=== PATIENT | female | born 1940 | race Caucasian/White ===

== ENCOUNTER 2025-09-22 11:37 | Inpatient (IN) | payer MEDICARE ==
[~2025-09-22] VITALS: Ht 162.6 cm; Wt 45.5 kg
--- NOTE | 2025-09-22 11:52 | ELECTROCARDIOGRAPH REPORT ---
[facility] Test Date: 2025-09-22 Test Time: 11:51:11 Pat Name: JOSE ANGEL CONWAY Department: [facility]ER Patient ID: [id number] Room: Gender: F [employer] Past[employer]er: : 1940 Requested By: WM FAJARDO Order Number: [id number] Reading MD: Measurements Intervals [place] Rate: 72 P: 90 VA: 138 QRS: 90 QRSD: 83 T: 80 QT: 418 QTc: 458 Interpretive Statements Sinus rhythm Probable anterior infarct, old Borderline repolarization abnormality Please click the below link to view image of tracing.
--- NOTE | 2025-09-22 12:25 | RADIOLOGY REPORT ---
AP portable chest CLINICAL INDICATION: CP FINDINGS: Heart size is slightly prominent in the aorta is tortuous. No infiltrates or effusions. There are some degenerative changes in the spine IMPRESSION: 1. No acute cardiopulmonary pathology
[2025-09-22 14:23] LABS: MEAN PLATELET VOLUME 9.0 FL (7.4-10.4); RED CELL DISTRIBUTION WIDTH 13.0 % (11.5-14.5)
--- NOTE | 2025-09-22 14:29 | Physician Documentation ---
History of Present Illness ~ Chief Complaint: Edema Stated Complaint: SWELLING Time Seen by MD: 14:04 Mode of Arrival: POV HPI 85-year-old female presents to the ED with one week of increased lower extremity swelling and redness. In addition the patient's smells strongly of urine. The family suspects a possible UTI. Patient has a known diagnosis of dementia but denies any history of congestive heart failure. Denies any chest pain shortness a breath weakness nausea vomiting or diarrhea Day of Onset: Sep 22, 2025 Medication Reconciliation Allergies: Coded Allergies: No Known Allergies (Unverified , 09/22/25) Review of Systems All Other Systems at this time: Reviewed and Negative ROS As stated above in the HPI, otherwise all systems are reviewed and negative. Physical Exam Vital Signs: Temperature: 97.5, Source: Temporal, Heart Rate: 69, Respiratory Rate: 16, BP: 132/48, Pulse Oximetry: 99, Weight: 45.450 Oxygen Flow Rate: 0 General Appearance General: Alert, no apparent distress. Respiratory: Lungs clear, no respiratory distress. Chest: No accessory muscle use. Cardiovascular: Regular rate and rhythm, no murmurs. Gastrointestinal: Soft, nontender, nondistended. Bowels sounds present. Extremities: Normal range of motion, no deformity. Bilateral feet her notable for 2+ pitting edema with gross erythema skin is not hot to touch Neurologic: Oriented2 Psychiatric: Normal mood and affect. Skin: Normal color, warm and dry. No edema, no ecchymosis. Progress Results/Orders Results/Orders Orders - LEOBARDO CLARK NP Straight Cath For Urine Sample (09/22/25 14:53) Page Hospitalist (09/22/25 ) Cult Urine + [address] (09/22/25 15:48) Completed Orders - LEOBARDO CLARK NP Ua W/Microscopic, Cult If Ind (09/22/25 14:50) Medications Received in ER Medications (Trade) Dose Ordered Sig/Miki Route PRN Reason Start Time Stop Time Status Last Admin Dose Admin Ceftriaxone Sodium 50 ml @ 100 mls/hr ONCE ONCE IV 09/22/25 15:55 09/22/25 16:32 DC 09/22/25 17:12 100 MLS/HR (Lasix inj) 20 mg ONCE ONCE IV 09/22/25 16:05 09/22/25 16:20 DC 09/22/25 17:13 20 MG Vital Signs 09/22/25 09/22/25 09/22/25 11:40 13:58 15:33 Temp 97.5 98.0 Pulse 69 74 Resp 18 16 19 B/P (MAP) 132/48 125/70 (88) Pulse Ox 99 100 O2 Flow Rate 0 Laboratory Tests Test 09/22/25 14:06 09/22/25 14:50 White Blood Count 7.4 Red Blood Count 3.99 L Hemoglobin 12.4 Hematocrit 37.7 Mean Corpuscular Volume 94.5 Mean Corpuscular Hemoglobin 31.1 H Mean Corpuscular Hemoglobin Concent 32.9 L Red Cell Distribution Width 13.0 Platelet Count 214 Mean Platelet Volume 9.0 Neutrophils (%) (Auto) 75.4 H Lymphocytes (%) (Auto) 12.2 L Monocytes (%) (Auto) 12.0 Eosinophils (%) (Auto) 0.2 Basophils (%) (Auto) 0.2 Neutrophils # (Auto) 5.6 Lymphocytes # (Auto) 0.9 L Monocytes # (Auto) 0.9 Eosinophils # (Auto) 0.0 Basophils # (Auto) 0.0 CBC Comment Sodium Level 143 Potassium Level 3.4 L Chloride Level 106 Carbon Dioxide Level 29.8 Anion Gap 7 L Blood Urea Nitrogen 17 Creatinine 0.83 Estimated GFR/1.73 m2 65 BUN/Creatinine Ratio 20.5 H Glucose Level 84 Calcium Level 8.7 Total Bilirubin 0.6 Aspartate Amino Transf (AST/SGOT) 35 Alanine Aminotransferase (ALT/SGPT) 56 Alkaline Phosphatase 109 Troponin I High Sensitivity 52 *H Pro-B-Type Natriuretic Peptide 824 H Total Protein 6.4 Albumin 3.3 L Globulin 3.1 Albumin/Globulin Ratio 1.1 Chemistry Comments Urine Specimen Description Cln catch midstream Urine Color Yellow Urine Clarity Slightly cloudy Urine pH 6.0 Urine Specific [place] 1.025 Urine Protein Negative Urine Glucose (UA) Negative Urine Ketones 15 H Urine Occult Blood Moderate H Urine Nitrite Positive H Urine Bilirubin Negative Urine Urobilinogen 0.2 Urine Leukocyte Esterase Trace H Urine RBC 3-10 Urine WBC 5-10 H Urine Squamous Epithelial Cells Moderate Urine Calcium Oxalate Crystals 2+ Urine Bacteria 4+ Urine Culture Indicated Indicated Volume Urine Centrifuged 5 ml Urine Comment Low volume Microbiology Date/Time Source Procedure Growth Status 09/22/25 15:48 Urine Clean Catch Midstream Urine Culture - Preliminary Culture received. Resulted Medical Decision Making Additional information obtaine: old records Findings Requesting hospital admission due to acute onset lower extremity edema without cause addition patient has a notable UTI. According to family patient in his at her cognitive baseline with dementia. He will start her on Rocephin and request hospitalist service Differential Dx:Considerations: Include: kim's cyst, Cancer, Cellulitis, Congestive heart failure, Compartment syndrome, Contusion, Deep venous thrombosis, Liver failure, Malnutrition, Muscle spasm, Plantaris rupture, Popliteal vein aneurysm, Renal faliure, Strain, Superfic thrombophlebitis, Venous insufficiency, Other Departure Disposition: ADMITTED INPATIENT Impression: Primary Impression: Acute on chronic diastolic heart failure Additional Impressions: Edema of lower extremity UTI (urinary tract infection) Referrals: NO PRIMARY CARE PROVIDER (PCP) Signature Scribe Signature: g Attestation: Scribed for Leobardo Clark [employer] by Leobardo Clark - SHAY . 09/22/25 18:11 LEOBARDO CLARK NP Sep 22, 2025 14:29
[2025-09-22 15:09] LABS: CREATININE 0.83 MG/DL (0.40-0.90); PRO BRAIN NATRIURETIC PEPTIDE 824 PG/ML (0-450); TOTAL CARBON DIOXIDE 29.8 MMOL/L (24-32); eCRCL 36 ML/MIN; eGFR 65 ML/MIN
[2025-09-22 15:37] LABS: LEUKOCYTE ESTERASE ,URINE TRACE (Neg); NITRITES, URINE POSITIVE (Neg); OCCULT BLOOD,URINE MODERATE (Neg)
[2025-09-22 15:45] LABS: UA COLLECTION TYPE CLN CATCH MIDSTREAM
[2025-09-22 15:47] LABS: CAL OXALATE CRYSTALS 2+ /HPF (NEGATIVE); SQUAMOUS EPITHELIAL CELL,UR MODERATE /LPF (FEW)
[2025-09-22] MEDS ORDERED: mag hydrox/Alum hydrox/simeth 30ml oral suspension PO PRN (15:55)
[2025-09-22] MEDS ORDERED: CefTRIAXone 1000mg IM Kit (w/lidocaine diluent) IM ONE (15:55)
[2025-09-22] MEDS ORDERED: potassium Cl 20 mEq SR tablet PO PRN (15:55)
[2025-09-22] MEDS ORDERED: ondansetron/PF 4mg/2ml inj IV PRN (15:55)
[2025-09-22] MEDS ORDERED: magnesium sulf-water 4G/100mL 100 ML IV PRN (15:55)
[2025-09-22] MEDS ORDERED: magnesium hydroxide 30ml (MOM) UD suspension PO PRN (15:55)
[2025-09-22] MEDS: PERFLUTREN PROTEIN-A MICROSPHR (Optison) 0.22 MG/ML 3ML VIAL IV ONE (15:55)
[2025-09-22] MEDS ORDERED: potassium Cl 40MEQ/1/2NS 520ml 520 ML IV PRN (15:55)
[2025-09-22] MEDS ORDERED: magnesium sulf-water 2g/50mL 50 ML IV PRN (15:55)
[2025-09-22] MEDS: CefTRIAXone/D5W-Rocephin 1gm 50 ML IV ONE (17:12)
--- NOTE | 2025-09-22 18:25 | CARDIOLOGY REPORT ---
APPROVED REPORT EXAM: Comprehensive 2D, Doppler, and color-flow Echocardiogram. Patient Location: ER13 Heart Rate: 73 bpm Rhythm: SINUS Indications CONGESTIVE HEART FAILURE CONFUSION - PT HAS DEMENTIA Zinc Chloride Operator: NONE Previous echo: NONE 2D Dimensions RVDd 2.3 cm LVOT Diameter 2.01 (1.8-2.4cm) CO 3.6 L/min M-Mode Dimensions Left Atrium(MM) 3.14 (2.5-4.0cm) IVSd 0.74 (0.7-1.1cm) LVDd 3.98 (4.0-5.6cm) Aortic Root 3.43 (2.2-3.7cm) PWd 0.77 (0.7-1.1cm) Aortic Cusp Exc 2.05 (1.5-2.0cm) IVSs 1.10 cm MV EPSS 0.5 (<0.5cm) LVDs 2.31 (2.0-3.8cm) FS (%) 42 % PWs 1.37 cm ESV(Teich) 18.3 ml LVEF(%) 74 (>50%) Aortic Valve AoV Peak Jose. 131.6 cm/s AO Peak GR. 6.9 mmHg LVOT Peak Jose. 111.6 cm/s MARVA (VMAX) 2.69 cm2 MARVA (VTI) 2.68 cm2 AI P 1/2 Time 444 ms Mitral Valve MV E Velocity 83.0 cm/s MV Peak Gr. 3 mmHg MV DECEL TIME 220 ms MV A Velocity 90.3 cm/s MV PHT 64 ms E/A Ratio 0.9 MVA (PHT) 3.44 cm2 MV VMax 90.2 cm/s Tricuspid Valve TR P. Velocity 242 cm/s RAP ESTIMATE 5 mmHg TR Peak Gr. 23 mmHg RVSP 28 mmHg Pulmonary Vein S1 Velocity 79.5 cm/s D2 Velocity 51.6 cm/s PVa Velocity 38.4 cm/s PVa Duration 92 msec LEFT VENTRICLE Normal LV size and function. Mild concentric hypertrophy. Overall LVEF is 70%. RIGHT VENTRICLE RV is normal size and function. ATRIA The left atrium size is normal. AORTIC VALVE Trileaflet AV appears mildly sclerotic without stenosis. Moderate insufficiency by color and spectral flow Doppler. MITRAL VALVE Mild MV annular calcification without stenosis. Trace regurgitation by color and spectral flow Doppler. TRICUSPID VALVE TV appears structurally normal with trace regurgitation by color and spectral flow Doppler. PULMONIC VALVE Normal PV without stenosis, physiologic insufficiency by color and spectral flow Doppler. GREAT VESSELS Aortic root is normal in size. Ascending aorta is normal in size. PERICARDIUM Normal pericardium. No effusion. Other Information Study Quality: Technically Difficult due to lack of cooperation. Pt had dementia. Conclusion Overall LVEF is 70%. Normal LV size and function. Mild concentric hypertrophy. RV is normal size and function. Trileaflet AV appears mildly sclerotic without stenosis. Moderate insufficiency by color and spectral flow Doppler. Mild MV annular calcification without stenosis. Trace regurgitation by color and spectral flow Doppler. TV appears structurally normal with trace regurgitation by color and spectral flow Doppler. Normal PV without stenosis, physiologic insufficiency by color and spectral flow Doppler. Normal pericardium. No effusion.
--- NOTE | 2025-09-22 18:26 | HISTORY AND PHYSICAL ---
History & Physical Providers to CC ~ History of Present Illness Reason for Admit\Complaint: UTI/ lower extremity edema History of Present Illness This is an 85-year-old female who has a 5-6 year history of dementia- which has a advanced significantly the patient lives on her her daughter's property and a trailer her daughter in caregiver is at bedside in his daughter informs me that the to avoid the patient for wandering at night they locked to trailer and turned off the gas so the patient is safe the patient is appeared to be well taking care of the daughter informs me the patient has not has a shower for three years she refuses to shower or bathe however the caregiver has been giving son sponge baths and the patient's skin looks clean and the patient is not malodorous. The patient presents to ED with a one-week history of increased swelling and redness and a lower extremities as well as strong smelling urine patient's UA is suggestive of UTI the patient is started on Rocephin IV urine culture sent lower extremities that has [id number] nonpitting edema of her feet and ankles bilaterally distal erythema of her feet as well. Due the patient has advanced dementia I have ordered PRN IM Geodon and requested that is the patient is caregiver Poly Strawhecker be allowed to stay at bedside for patient safety in the evening, Allergies: Coded Allergies: No Known Allergies (Unverified , 09/22/25) Past Medical History Past Medical History Advanced dementia Past Surgical History Surgical History Comment No prior surgeries Family History Family History: FH: breast cancer MOTHER FH: dementia FATHER Past Social History Social History Comment Nonsmoker, does not drink alcohol or use illicit drugs. DNR code status as per discussion with the patient's daughter. ROS ROS Except for positives in the HPI the rest of the 14 point review systems is negative as per discussion with family Exam Vitals: Vital Signs Date Time Temp Pulse Resp B/P (MAP) Pulse Ox O2 Delivery O2 Flow Rate FiO2 09/22/25 17:42 98.0 76 17 179/101 (127) 97 0 General: Gen. No acute distress alert confused and speech is nonsensical Lungs clear to ascultation bilaterally, no wheezes rales or rhonchi appreciated Heart normal sinus rhythm no murmurs rubs or clicks noted Abdomen soft nontender bowel sounds are normoactive Lower extremities no clubbing cyanosis, [id number]-[id number] nonpitting edema of the feet and mild erythema of the feet bilaterally Diagnostic Data Last Recorded Lab Results: 09/22/25 1406 09/22/25 1406 Advance Care Planning Advanced Care plannin - 30 Minutes Problems: (1) UTI (urinary tract infection) Status: Acute Additional Plan # chronic metabolic encephalopathy secondary to advanced dementia The patient is caregiver Xavier Lebron is going to stay evening for patient safety I have already discussed this with both the ED charge nurse and the nursing supervisor hardboard. PRN IM Geodon # UTI likely secondary to cystitis Urine culture IV Rocephin # bilateral pedal edema with a mildly elevated proBNP possibly secondary to acute HFpEF Echocardiogram demonstrates an LVEF of 65-70% on preliminary report IV daily Lasix I ordered wound care as well # mildly elevated high sensitivity troponin on admission No mi is present on the high sensitivity troponin is 52 initially and the upper limits of normal are 50 that is this is within standard deviation of normal and the repeat high sensitivity troponin in his 46. # hypokalemia on potassium replacement protocol # DVT prophylaxis SQ Lovenox I spent a total of 16 minutes on reviewing various resuscitative measures/ ACP with the patient's daughter at the time of admission. The patient is a DNR code status Date of Service: Sep 22, 2025 Billing Provider: LOKESH CLARK DO Common Visit Codes: 18920-[id number] INP/OBS CARE (HIGH) Secondary Visit Codes: 73304-[id number] CARE PLAN 30 MINUTES LOKESH CLARK DO Sep 22, 2025 18:26
[2025-09-22] MEDS: ziprasidone IM 20mg inj **IM only IM PRN (19:04)
[2025-09-22] MEDS: K and/or MAG REPLACEMENT MC SCH (20:00)
[2025-09-22] MEDS: enoxaparin 40mg/0.4ml syringe SQ SCH (20:00)
[2025-09-22] MEDS: docusate sod 100mg capsule PO SCH (20:00)
[2025-09-22] MEDS ORDERED: MEMA10TA22 PO (20:55)
[2025-09-22] MEDS ORDERED: ARIP2TAB67 PO (20:55)
[2025-09-22] MEDS: potassium Cl 20 mEq SR tablet PO PRN (22:16)
[2025-09-22 22:33] VITALS: BP 120/60; PULSE 72; RESP 16; TEMP 97.4; O2SAT 100
[2025-09-23 05:48] LABS: MEAN PLATELET VOLUME 8.7 FL (7.4-10.4); RED CELL DISTRIBUTION WIDTH 12.8 % (11.5-14.5)
[2025-09-23 06:00] VITALS: BP 123/54; PULSE 67; RESP 16; TEMP 97.4; O2SAT 100
[2025-09-23 06:27] LABS: CREATININE 0.87 MG/DL (0.40-0.90); TOTAL CARBON DIOXIDE 32.9 MMOL/L (24-32); eCRCL 35 ML/MIN; eGFR 62 ML/MIN
[2025-09-23 08:00] VITALS: RESP 16; O2SAT 100
[2025-09-23 10:00] VITALS: BP 159/47; PULSE 69; RESP 16; TEMP 97.6; O2SAT 99
[2025-09-23] MEDS: CefTRIAXone/D5W-Rocephin 1gm 50 ML IV SCH (10:55)
[2025-09-23 18:00] VITALS: BP 131/42; PULSE 56; RESP 16; TEMP 97.6; O2SAT 98
[2025-09-23] MEDS: Ensure Enlive - 237ML PO SCH (18:00)
[2025-09-23 20:00] VITALS: RESP 17; O2SAT 97
--- NOTE | 2025-09-23 21:25 | PROGRESS NOTE ---
Daily Progress Note Providers to CC ~ Antibiotic Timeout Antibiotic Ordered?: Yes Subjective The patient is caregiver was at bedside in his sustained the patient- her lower extremity edema has improved with IV Lasix, urine culture grew out Gram-negative rods Objective Vital Signs Date Time Temp Pulse Resp B/P (MAP) Pulse Ox O2 Delivery O2 Flow Rate FiO2 09/23/25 18:00 97.6 56 16 131/42 (71) 98 Room Air 09/22/25 21:32 0 Result Diagram: 09/23/2551609/23/25516 Gen. No acute distress alert confused and speech is nonsensical Lungs clear to ascultation bilaterally, no wheezes rales or rhonchi appreciated Heart normal sinus rhythm no murmurs rubs or clicks noted Abdomen soft nontender bowel sounds are normoactive Lower extremities no clubbing cyanosis, mild-nonpitting edema of the feet and mild erythema of the feet bilaterally Problem\Assessment\Plan Problems/Diagnosis: (1) UTI (urinary tract infection) # chronic metabolic encephalopathy secondary to advanced dementia The patient is caregiver Xavier Lebron is going to stay evening for patient safety I have already discussed this with both the ED charge nurse and the nursing supervisor pullet farm. PRN IM Geodon # UTI likely secondary to cystitis Urine culture grew out Gram-negative rods IV Rocephin # bilateral pedal edema with a mildly elevated proBNP possibly secondary to acute HFpEF Echocardiogram demonstrates an LVEF of 65-70% on preliminary report IV daily Lasix I ordered wound care deferred to nursing 09/23 improving # mildly elevated high sensitivity troponin on admission No mi is present on the high sensitivity troponin is 52 initially and the upper limits of normal are 50 that is this is within standard deviation of normal and the repeat high sensitivity troponin in his 46. # hypokalemia on potassium replacement protocol # DVT prophylaxis SQ Lovenox Disposition: Anticipate discharge home in the a.m. Date of Service: Sep 23, 2025 Billing Provider: LOKESH CLARK DO Common Visit Codes: [id number] INP/OBS CARE(HIGH) LOKESH CLARK DO Sep 23, 2025 21:25
[2025-09-23 22:00] VITALS: BP 110/34; PULSE 75; RESP 17; TEMP 97.2; O2SAT 97
[2025-09-24 05:57] LABS: MEAN PLATELET VOLUME 9.2 FL (7.4-10.4); RED CELL DISTRIBUTION WIDTH 12.7 % (11.5-14.5)
[2025-09-24 06:00] VITALS: BP 127/47; PULSE 79; RESP 16; TEMP 97.6; O2SAT 98
[2025-09-24 06:18] LABS: CREATININE 0.98 MG/DL (0.40-0.90); TOTAL CARBON DIOXIDE 30.1 MMOL/L (24-32); eCRCL 31 ML/MIN; eGFR 54 ML/MIN
[2025-09-24 08:00] VITALS: RESP 16; O2SAT 95
[2025-09-24 10:00] VITALS: BP 119/51; PULSE 76; RESP 16; TEMP 97.2; O2SAT 99
[2025-09-24] MEDS ORDERED: FURO20TA4 PO (13:09)
[2025-09-24] MEDS ORDERED: CEPH500C2 PO (13:09)
[2025-09-24] MEDS ORDERED: POTA-207 PO (13:09)
[2025-09-24] MEDS ORDERED: SACC250C PO (13:09)
--- NOTE | 2025-09-24 20:21 | DISCHARGE SUMMARY ---
Discharge Summary Providers to CC ~ Discharge Summary Admission Diagnosis: CHF/ [place]/ UTI Hospital Course DATE OF ADMISSION: 09/22/2025 DATE OF DISCHARGE: 09/24/2025 Discharge Diagnosis\Comment: Chronic metabolic encephalopathy secondary to advanced dementia, UTI secondary to cystitis, bilateral pedal edema possibly secondary to HFpEF as well as secondary venous stasis dermatitis, type 2 mi is ruled out, hypokalemia Operations\Procedures: None Consultants: None Complications: None Condition on DC: Stable New Medications: Cephalexin Monohydrate (Cephalexin) 500 Mg Capsule 1 CAP PO Q8H, #6 CAP Furosemide (Furosemide) 20 Mg Tablet 1 TAB PO DAILY for 30 Days, #30 TAB 0 Refills Potassium Chloride* (K-Dur*) 20 Meq Tab.prt.sr 1 TAB PO DAILY, #30 TAB Saccharomyces Boulardii (Florastor) 250 Mg Capsule 1 CAP PO Q12H for loose stool for 10 Days, #20 CAP 0 Refills Continued Medications: Aripiprazole (Aripiprazole) 2 Mg Tablet 1 TAB PO HS Memantine HCl (Memantine HCl) 10 Mg Tablet 1 TAB PO BID Discharge Summary: I admitted the patient with the following HPI:This is an 85-year-old female who has a 5-6 year history of dementia- which has a advanced significantly the patient lives on her her daughter's property and a trailer her daughter in caregiver is at bedside in his daughter informs me that the to avoid the patient for wandering at night they locked to trailer and turned off the gas so the patient is safe the patient is appeared to be well taking care of the daughter informs me the patient has not has a shower for three years she refuses to shower or bathe however the caregiver has been giving son sponge baths and the patient's skin looks clean and the patient is not malodorous. The patient prese nts to ED with a one-week history of increased swelling and redness and a lower extremities as well as strong smelling urine patient's UA is suggestive of UTI the patient is started on Rocephin IV urine culture sent lower extremities that has [id number] nonpitting edema of her feet and ankles bilaterally distal erythema of her feet as well. Due the patient has advanced dementia I have ordered PRN IM Doris and requested that is the patient is caregiver Poly Strawhecker be allowed to stay at bedside for patient safety in the evening, The patient's caregiver stated with the patient and thus there were no issues during hospitalization in regards to agitation requiring PRN Doris The patient had an echocardiogram with a LVEF of 65-70% her pedal edema improved with IV Lasix that is the patient possibly has acute HFpEF as well as mild rubor and purplish discoloration of the feet bilaterally which is consistent with a venous stasis dermatitis the patient does have pretty fair amount of varicose veins in the lower extremities. The patient has a severe protein calorie malnutrition as well and the dietitian started the patient on protein drinks which are to be continued outpatient setting. The patient has a UTI which grew out pansensitive E coli the patient is treated with IV Rocephin and discharged with a prescription for cephalexin additional three days as well as Florastor probiotic. The patient had hypokalemia serum potassium of 3.1 on the did resolve on the however the patient was prescribed KCl 20 mEq daily along with 20 mg of p.o. Lasix with the recommendations to recheck a basic metabolic panel in in one-week. Gen. No acute distress alert confused and speech is nonsensical Lungs clear to ascultation bilaterally, no wheezes rales or rhonchi appreciated Heart normal sinus rhythm no murmurs rubs or clicks noted Abdomen soft nontender bowel sounds are normoactive Lower extremities no clubbing cyanosis, mild-nonpitting edema of the feet and mild erythema of the feet bilaterally The patien was medically cleared to be discharged on 09/24/2025 The patient was seen and evaluated on day of discharge. Time spent on discharge 35 minutes *Problems/Diagnosis: (1) UTI (urinary tract infection) Status: Acute Total Time Spent on D/C: > 30 Minutes Date of Service: Sep 24, 2025 Billing Provider: LOKESH CLARK DO Common Visit Codes: 41399-HUT/OBS DISCH DAY >30min LOKESH CLARK DO Sep 24, 2025 20:21
== END 2025-09-24 14:15 | disposition home or self-care (01) | DRG 291 ==
LOC: ER 11:38 → UNDOADMIN 16:05 → ED HOLD 16:05 → ORTHO 4S 21:55
PROVIDERS: ADMIT Family Medicine; ATTEND Family Medicine
DX: I50.33 Acute on chronic diastolic (congestive) heart failure (principal); E43 Unspecified severe protein-calorie malnutrition; G93.41 Metabolic encephalopathy; Z66 Do not resuscitate; N30.80 Other cystitis without hematuria; F03.90 Unspecified dementia, unspecified severity, without behavioral disturbance, psychotic disturbance, mood disturbance, and anxiety; Z68.1 Body mass index [BMI] 19.9 or less, adult; E87.6 Hypokalemia; Z80.3 Family history of malignant neoplasm of breast
CPT/HCPCS: 36415; 71045; 80053; 81001; 83735; 83880; 84484; 85025; 87077; 87081; 87088; 87186; 93005; 93306; 96365; 96372; 96375; 99285; G0378; J0696; J1650; J1938; J3486